=== PATIENT | female | born 1990 | race Caucasian/White ===

== ENCOUNTER 2016-08-31 12:24 | Emergency (ER) | payer OTHER ==
[2016-08-31 12:42] VITALS: RESP 16
[2016-08-31] MEDS ORDERED: IBUPROFEN 200 MG TAB PO ONE (15:24)
[2016-08-31] MEDS ORDERED: IBUPROFEN 600 MG TAB PO ONE (15:31)
[2016-08-31] MEDS ORDERED: NS 1,000 ML IV ONE (15:37)
[2016-08-31] MEDS ORDERED: HYDROmorphONE/DILAUDID 1 MG/ML SYR IVP ONE ×2 (15:38→17:08)
[2016-08-31] MEDS ORDERED: ONDANSETRON 4 MG/2 ML VIAL IVP ONE (15:38)
--- NOTE | 2016-08-31 15:41 | UCPHY ---
H & P Patient Type: New Chief Complaint Nursing Narrative: r rib pain since thursday, no known injury, pain worse with deep breath Time Seen by Provider: 08/31/16 14:50 HPI/ROS: CHIEF COMPLAINT: Right-sided rib pain HISTORY OF PRESENT ILLNESS: The patient is a 18-year-old healthy female who comes to the Urgent Care complaining of right-sided pleuritic rib pain. She denies any injury. She exercises frequently but does not do any heavy lifting. She has not had any trauma. She does take control. She does not smoke. She has not had any recent travel. No leg pain or swelling. She states the pain is in her right lower anterior rib cage and radiates to her back. It began on Thursday but at that time was radiating to her shoulder. She has not had a fever cough. She does feel slightly short of breath. REVIEW OF SYSTEMS: Constitutional: denies: chills, fever, recent illness, recent injury EENTM: denies: blurred vision, double vision, nose congestion Respiratory: See HPI Cardiac: denies: chest pain, irregular heart rate, lightheadedness, palpitations Gastrointestinal/Abdominal: denies: abdominal pain, diarrhea, nausea, vomiting, blood streaked stools Genitourinary: denies: dysuria, frequency, hematuria, pain Musculoskeletal: denies: joint pain, muscle pain Skin: denies: lesions, rash, jaundice, bruising Neurological: denies: headache, numbness, paresthesia, tingling, dizziness, weakness Hematologic/Lymphatic: denies: blood clots, easy bleeding, easy bruising Immunologic/allergic: denies: HIV/AIDS, transplant EXAM: GENERAL: Well-appearing, well-nourished and in no acute distress. HEAD: Atraumatic, normocephalic. EYES: Pupils equal round and reactive to light, extraocular movements intact, sclera anicteric, conjunctiva are normal. ENT: TMs normal, nares patent, oropharynx clear without exudates. Moist mucous membranes. NECK: Normal range of motion, supple without lymphadenopathy or JVD. LUNGS: Breath sounds clear to auscultation bilaterally and equal. No wheezes rales or rhonchi. No rib tenderness HEART: Regular rate and rhythm without murmurs, rubs or gallops. ABDOMEN: Soft, nontender, normoactive bowel sounds. No guarding, no rebound. No masses appreciated. Negative Morgan sign BACK: No CVA tenderness, no spinal tenderness, step-offs or deformities EXTREMITIES: Normal range of motion, no pitting or edema. No clubbing or cyanosis. NEUROLOGICAL: Cranial nerves II through XII grossly intact. Normal speech, normal gait. 5/5 strength, normal movement in all extremities, normal sensation PSYCH: Normal mood, normal affect. SKIN: Warm, dry, normal turgor, no visible rashes or lesions. Source: Patient Exam Limitations: No limitations - Personal History LMP (Females 10-55): 15-21 Days Ago Current Tetanus/Diphtheria Vaccine: Yes - Medical/Surgical History Hx Asthma: No Hx Chronic Respiratory Disease: No Hx Diabetes: No Hx Cardiac Disease: No Hx Renal Disease: No Hx Cirrhosis: No Hx Alcoholism: No Other PMH: deneis - Family History Significant Family History: No pertinent family hx - Social History Smoking Status: Never smoked Alcohol Use: Sober Drug Use: None Constitutional: Initial Vital Signs Temperature (C) 37.2 C 08/31/16 12:39 Heart Rate 70 08/31/16 12:39 Respiratory Rate 16 08/31/16 12:39 Blood Pressure 98/46 L 08/31/16 12:39 O2 Sat (%) 97 08/31/16 12:39 O2 Delivery Mode Room Air Allergies/Adverse Reactions: potassium clavula *RETIRED-01/19/12 [From Augmentin] Allergy (Intermediate, Verified 10/15/11 18:37) Rash amoxicillin [Amoxicillin] Allergy (Verified 10/15/11 18:37) Rash amoxicillin trihydrate [From Augmentin] Allergy (Verified 10/15/11 18:37) Rash Home Medications: Medication Instructions Recorded Bcp 08/31/16 Escitalopram Oxalate [Lexapro] 08/31/16 Hydrocodone/APAP 5/325 [[place] 1 tab PO Q4H PRN #14 tab 08/31/16 5/325 (RX)] Rivaroxaban [Xarelto] 1 each PO BID #1 tab.ds.pk 08/31/16 Medical Decision Making - Diagnostics EKG Interpretation: An EKG obtained and was read and documented in trace view. Please see trace view for full reading and report. Sinus rhythm, T-wave inversions in lead 3 Imaging Results: Imaging Impressions Chest X-Ray 08/31/16 12:42 Impression: Normal chest x-ray. Chest/Thorax CTA 08/31/16 16:18 Impression: 1. Low volume right lower lobe pulmonary embolic disease. 2. Suspect developing pulmonary infarct posteriorly at the right lung base. Results called and discussed with Siddhartha Mccarthy M.D. on August 31, 2016 at 1718 hours. Imaging: Discussed imaging studies w/ will call order clerk Radiologist ED Course/Re-evaluation: The patient has a small subsegmental PE with infarct. Her pulmonary embolism severity index score is low. She is eligible for outpatient management. She is not in any respiratory distress. She is not requiring oxygen. Her heart rate and blood pressure normal. No history of bleeding risk of bleeding. No serious comorbid conditions. Normal mental status and no evidence of DVT. I curb sided Dr. Mcallister. The patient will receive a dose of Lovenox tonight because Xarelto is not available and pharmacies are closed. We will then send her to the emergency department where she can receive the starter pack coupon. Her dad will drive her. I did offer her admission but she would prefer to go home. She states that the half tablet of Vicodin she took earlier controlled her pain adequately. We discussed indications for returning and I gave her strict return precautions. Differential Diagnosis: Partial list of the Differential diagnosis considered include but were not limited to; pulmonary embolism biliary disease, pneumonia and although unlikely based on the history and physical exam, I also considered pneumothorax , rib fracture, sprain, acute coronary disease. I discussed these differential diagnoses and the plan with the patient as well as the usual and expected course. The patient understands that the diagnosis is provisional and that in medicine we are not always correct and that further workup is often warranted. Usual and customary warnings were given. All of the patient's questions were answered. The patient was instructed to return to the emergency department should the symptoms at all worsen or return, otherwise to followup with the physician as we discussed. - Data Points Laboratory Results: Laboratory Results 08/31/16 15:55 08/31/16 15:55 08/31/16 08/31/16 08/31/16 15:55 15:55 15:55 WBC RBC Hgb Hct MCV MCH MCHC RDW Plt Count MPV Neut % (Auto) Lymph % (Auto) Stone % (Auto) Eos % (Auto) Baso % (Auto) Nucleat RBC Rel Count Absolute Neuts (auto) Absolute Lymphs (auto) Absolute Monos (auto) Absolute Eos (auto) Absolute Basos (auto) Absolute Nucleated RBC Immature Gran % Immature Gran # D-Dimer 3.02 ug/mLFEU H ug/mLFEU (0.00-0.50) Sodium 141 mEq/L mEq/L (134-144) Potassium 4.4 mEq/L mEq/L (3.5-5.2) Chloride 100 mEq/L mEq/L (97-110) Carbon Dioxide 23 mEq/l mEq/l (22-31) Anion Gap 18 mEq/L H mEq/L (8-16) BUN 13 mg/dL mg/dL (7-23) Creatinine 1.3 mg/dL H mg/dL (0.6-1.0) Estimated GFR 49 Glucose 81 mg/dL mg/dL (70-100) Calcium 9.9 mg/dL mg/dL (8.5-10.4) Total Bilirubin 1.7 mg/dL H mg/dL (0.1-1.4) Conjugated Bilirubin 0.3 mg/dL mg/dL (0.0-0.5) Unconjugated Bilirubin 1.4 mg/dL H mg/dL (0.0-1.1) AST 24 IU/L IU/L (14-46) ALT 23 IU/L IU/L (9-52) Alkaline Phosphatase 55 IU/L IU/L (38-126) Total Protein 8.9 g/dL H g/dL (6.3-8.2) Albumin 4.5 g/dL g/dL (3.5-5.0) Lipase 145.0 IU/L IU/L (23-300) Beta HCG, Qual NEGATIVE 08/31/16 15:55 WBC 4.79 10^3/uL 10^3/uL (3.80-9.50) RBC 4.61 10^6/uL 10^6/uL (4.18-5.33) Hgb 14.4 g/dL g/dL (12.6-16.3) Hct 42.3 % % (38.0-47.0) MCV 91.8 fL fL (81.5-99.8) MCH 31.2 pg pg (27.9-34.1) MCHC 34.0 g/dL g/dL (32.4-36.7) RDW 12.5 % % (11.5-15.2) Plt Count 263 10^3/uL 10^3/uL (150-400) MPV 8.9 fL fL (8.7-11.7) Neut % (Auto) 71.9 % % (39.3-74.2) Lymph % (Auto) 20.0 % % (15.0-45.0) Stone % (Auto) 7.1 % % (4.5-13.0) Eos % (Auto) 0.4 % L % (0.6-7.6) Baso % (Auto) 0.2 % L % (0.3-1.7) Nucleat RBC Rel Count 0.0 % % (0.0-0.2) Absolute Neuts (auto) 3.44 10^3/uL 10^3/uL (1.70-6.50) Absolute Lymphs (auto) 0.96 10^3/uL L 10^3/uL (1.00-3.00) Absolute Monos (auto) 0.34 10^3/uL 10^3/uL (0.30-0.80) Absolute Eos (auto) 0.02 10^3/uL L 10^3/uL (0.03-0.40) Absolute Basos (auto) 0.01 10^3/uL L 10^3/uL (0.02-0.10) Absolute Nucleated RBC 0.00 10^3/uL 10^3/uL (0-0.01) Immature Gran % 0.4 % % (0.0-1.1) Immature Gran # 0.02 10^3/uL 10^3/uL (0.00-0.10) D-Dimer Sodium Potassium Chloride Carbon Dioxide Anion Gap BUN Creatinine Estimated GFR Glucose Calcium Total Bilirubin Conjugated Bilirubin Unconjugated Bilirubin AST ALT Alkaline Phosphatase Total Protein Albumin Lipase Beta HCG, Qual Medications Given: Discontinued Medications Hydrocodone Bitart/Acetaminophen ([place] 5/325mg Prepack#6) 1 btl TAKEHOME EDNOW ONE Stop: 08/31/16 18:23 Last Admin: 08/31/16 18:33 Dose: 1 btl Enoxaparin Sodium (Lovenox) 60 mg SC EDNOW ONE Stop: 04/23/17 17:50 Last Admin: 08/31/16 18:15 Dose: 60 mg Hydromorphone HCl (Dilaudid) 1 mg IVP EDNOW ONE Stop: 08/31/16 15:39 Last Admin: 08/31/16 16:02 Dose: 1 mg Hydromorphone HCl (Dilaudid) 1 mg IVP EDNOW ONE Stop: 08/31/16 17:09 Last Admin: 08/31/16 17:18 Dose: 1 mg Sodium Chloride (Ns) 1,000 mls @ 0 mls/hr IV ONCE ONE PRN Reason: Wide Open Stop: 08/31/16 15:38 Last Admin: 08/31/16 16:00 Dose: 1,000 mls Ibuprofen (Motrin) 400 mg PO EDNOW ONE Stop: 08/31/16 15:25 Last Admin: 08/31/16 15:34 Dose: 400 mg Ondansetron HCl (Zofran) 4 mg IVP EDNOW ONE Stop: 08/31/16 15:39 Last Admin: 08/31/16 16:01 Dose: 4 mg Rivaroxaban (Xarelto) 15 mg PO BIDMEAL ABHISHEK Stop: 02/27/17 17:59 Last Admin: 08/31/16 18:13 Dose: Not Given Departure - Departure Disposition: Home, Routine, Self-Care Clinical Impression: Pulmonary embolism Qualifiers: Pulmonary embolism type: other Chronicity: acute Acute cor pulmonale presence: without acute cor pulmonale Qualified Code(s): I26.99 - Other pulmonary embolism without acute cor pulmonale Condition: Fair Instructions: Narcotic-Analgesic/Acetaminophen (By mouth), Rivaroxaban (By mouth), Deep Venous Thrombosis (ED) Referrals: Chayito Velazquez, PAC [Primary Care Provider] - As per Instructions Prescriptions: Hydrocodone/APAP 5/325 [[place] 5/325 (RX)] 1 tab PO Q4H PRN #14 tab PRN Reason: Pain, Moderate Rivaroxaban [Xarelto] 1 each PO BID #1 tab.ds.pk - PQRS PQRS Measurement: Not applicable
--- NOTE | 2016-08-31 15:57 | CPEKG ---
Heart Rate: 64 RR Interval: 938 P-R Interval: 156 QRSD Interval: 80 QT Interval: 392 QTC Interval: 405 P Gerber: 30 QRS Gerber: 25 T Wave Gerber: -2 EKG Severity - NORMAL ECG - EKG Impression: SINUS RHYTHM Electronically Signed By: Siddhartha Mccarthy 31-Aug-2016 16:21:08
[2016-08-31 16:04] LABS: % IMMATURE GRANULYOCYTES 0.4 % (0.0-1.1); ABSOLUTE IMMATURE GRANULOCYTES 0.02 10^3/uL (0.00-0.10); ADD DIFF? NO; ADD MORPH? NO; ADD SCAN? NO; ATYPICAL LYMPHOCYTE FLAG 20 (0-99); FRAGMENT RBC FLAG 0 (0-99); HEMATOCRIT 42.3 % (38.0-47.0); HEMOGLOBIN 14.4 g/dL (12.6-16.3); LEFT SHIFT FLG 0 (0-99); LIPEMIA HEMOLYSIS FLAG 90 (0-99); MEAN CELL HEMOGLOBIN 31.2 pg (27.9-34.1); MEAN CELL VOLUME 91.8 fL (81.5-99.8); MEAN PLATELET VOLUME 8.9 fL (8.7-11.7); PLATELET CLUMPS FLAG 10 (0-99); PLATELET COUNT 263 10^3/uL (150-400); RED BLOOD CELL COUNT 4.61 10^6/uL (4.18-5.33); RED CELL DISTRIBUTION WIDTH 12.5 % (11.5-15.2)
[2016-08-31 16:17] LABS: ALBUMIN 4.5 g/dL (3.5-5.0); BILIRUBIN,TOTAL 1.7 mg/dL (0.1-1.4); BILIRUBIN-CONJUGATED 0.3 mg/dL (0.0-0.5); BILIRUBIN-UNCONJUGATED 1.4 mg/dL (0.0-1.1); CALCIUM 9.9 mg/dL (8.5-10.4); CREATININE 1.3 mg/dL (0.6-1.0); POTASSIUM 4.4 mEq/L (3.5-5.2); TOTAL PROTEIN 8.9 g/dL (6.3-8.2)
[2016-08-31] MEDS ORDERED: IOPAMIDOL (ISOVUE 370) 100 ML BTL IV ONE (16:39)
[2016-08-31] MEDS ORDERED: ENOXAPARIN 60 MG/0.6 ML SYR SC ONE (17:49)
[2016-08-31] MEDS ORDERED: RIVAROXABAN 15 MG TAB PO SCH (18:00)
[2016-08-31 18:05] VITALS: BP 120/74; PULSE 64; TEMP 99; O2SAT 94
[2016-08-31] MEDS ORDERED: HYDROCOD/APAP 5/325 PREPACK#6 BTL TAKEHOME ONE (18:22)
== END 2016-08-31 18:36 | disposition home or self-care (01) ==
LOC: CED 12:24
DX: I26.99 Other pulmonary embolism without acute cor pulmonale (principal)
CPT/HCPCS: 71020-PO; 71275-PO; 80048-PO; 80076-PO; 83690-PO; 84703-PO; 85025-PO; 85378-PO; 93010-PO; 96361-PO; 96374-PO; 96375-PO; 96376-PO; 99205-PO; G0463-PO; J1170; J1650; J2405; Q9967

== ENCOUNTER 2018-01-16 21:21 | Emergency (ER) | payer OTHER ==
[2018-01-16] MEDS ORDERED: NS 1,000 ML IV ONE (21:53)
[2018-01-16] MEDS ORDERED: IBUPROFEN 600 MG TAB PO ONE (21:53)
--- NOTE | 2018-01-16 21:56 | EDPHY ---
H & P Time Seen by Provider: 01/16/18 21:28 HPI/ROS: CHIEF COMPLAINT: Right low chest pain HISTORY OF PRESENT ILLNESS: This is a 27-year-old female with history of pulmonary embolism about 18 months ago who presents reporting that she has had continuous right low chest discomfort associated with mild shortness of breath for the last 4 days. Pain developed when she was running. She felt like she might have a stitch in her side but it has persisted. She did note some cramping in her calf after a run. She also recently returned from [facility] for work, which is a 2 hr plane flight. No fevers or chills. No cough. No anterior chest pain. No nausea or vomiting. No diarrhea. Prior PE was in the similar location. Prior PE was thought to be provoked from her oral control pills. She is currently on a progesterone only IUD. REVIEW OF SYSTEMS: A comprehensive 10 system review of systems was reviewed and is otherwise negative aside from elements mentioned in the history of present illness. PAST MEDICAL HISTORY: Pulmonary embolism. SOCIAL HISTORY: Nonsmoker. VITAL SIGNS Reviewed by me. GENERAL: Well-developed, well-nourished, resting comfortably in no respiratory distress. HEENT: Atraumatic. Eyes: No icterus, no injection. Mouth: moist mucous membranes. No erythema or lesions. Neck: supple with no adenopathy. LUNGS: Clear to auscultation bilaterally, no wheezes, rhonchi or rales. CHEST: Patient indicates an area of discomfort over the right lower chest wall. No tenderness. No crepitus. No subcutaneous air palpable. CARDIAC: Regular rate and rhythm, no rubs, murmurs or gallops. ABDOMEN: Soft, nontender, nondistended, bowel sounds normal. BACK: No CVA tenderness. EXTREMITIES: No trauma. No edema. Range of motion is normal throughout. NEURO: Alert and oriented, grossly nonfocal. SKIN: Warm and dry, no rash. PSYCHIATRIC: Normal mentation, no agitation. Smoking Status: Never smoked Constitutional: Initial Vital Signs Temperature (C) 36.9 C 01/16/18 21:32 Heart Rate 60 01/16/18 21:32 Respiratory Rate 16 01/16/18 21:32 Blood Pressure 146/84 H 01/16/18 21:32 O2 Sat (%) 98 01/16/18 21:32 O2 Delivery Mode Room Air Allergies/Adverse Reactions: potassium clavula *RETIRED-01/19/12 [From Augmentin] Allergy (Intermediate, Verified 01/16/18 21:30) Rash amoxicillin [Amoxicillin] Allergy (Verified 01/16/18 21:30) Rash amoxicillin trihydrate [From Augmentin] Allergy (Verified 01/16/18 21:30) Rash Home Medications: Medication Instructions Recorded Iud 01/16/18 Naproxen Sodium [Aleve 220 MG (*)] 01/16/18 predniSONE 40 mg PO DAILY #6 tab 01/16/18 Medical Decision Making - Diagnostics Imaging Results: Imaging Impressions Chest/Thorax CTA 01/16/18 22:16 Impression: 1. No definite pulmonary thromboemboli. 2. No aortic aneurysm or dissection. 2. Pleural-parenchymal scarring right lower lobe from previous pulmonary embolus. 4. However no evidence of acute pulmonary embolus, acute pneumonia, pleural effusion or pneumothorax. Findings and recommendations discussed with Emergency Department physician, Briseyda Jeffery MD at 23:23 hour, 01/16/2018. Final report concurs with initial preliminary interpretation. ED Course/Re-evaluation: Review of the patient's records indicate that when she presented with her prior PE she had similar pain. At that time she was not tachycardic, hypoxic, or tachypneic. She did have elevated D-dimer at [address] scan which demonstrated subsegmental PE with infarct. Per the wells criteria the patient has a score of 4.5. (1.5 for prior PE and 3 for no other likely alternative diagnosis.) This gives the patient a moderate pretest probability for pulmonary embolism. I do note, however, the patient's provoking factor of estrogen containing oral contraceptive pills is no longer present. Patient's D-dimer high point of care testing is negative. Unclear to me if this is a highly sensitive D-dimer. Discussed the situation with the patient. We will proceed with CT scan to fully evaluate for pulmonary embolism. Patient's CT scan does not demonstrate any recurrent pulmonary embolism. Patient does have some pleural scarring in the right lower lobe at the location of the prior PE. Discussed the CT scan findings with the patient. Advised ibuprofen and/or Aleve for pain and anti-inflammatory effects. Patient was also given a short course of prednisone to treat presumed pleurisy. Follow up with her primary care physician and/or with pulmonology if her symptoms become persistent or recurrent with exercise. Differential Diagnosis: After history and physical examination, the differential for this patient's chest discomfort was considered, including but not limited to, myocardial ischemia, acute coronary syndrome, pulmonary embolus, chest wall pain, pleural inflammation and pulmonary infectious causes. - Data Points Laboratory Results: 01/16/18 21:59 POC Hgb 13.9 gm/dL gm/dL (12.6-16.3) POC Hct 41 % % (38-47) POC Sodium 141 mEq/L mEq/L (135-145) POC Potassium 3.1 mEq/L L mEq/L (3.3-5.0) POC Chloride 103 mEq/L mEq/L (97-110) POC BUN 15 mg/dL mg/dL (7-23) POC Creatinine 1.1 mg/dL H mg/dL (0.6-1.0) POC Glucose 91 mg/dL mg/dL (70-100) Medications Given: Discontinued Medications Sodium Chloride (Ns) 1,000 mls @ 0 mls/hr IV ONCE ONE; Wide Open PRN Reason: Protocol Stop: 01/16/18 21:54 Last Admin: 01/16/18 22:27 Dose: 1,000 mls Ibuprofen (Motrin) 600 mg PO EDNOW ONE Stop: 01/16/18 21:54 Last Admin: 01/16/18 22:32 Dose: 600 mg Point of Care Test Results: Chemistry 01/16/18 21:59 POC Sodium 141 mEq/L mEq/L (135-145) POC Potassium 3.1 mEq/L L mEq/L (3.3-5.0) POC Chloride 103 mEq/L mEq/L (97-110) POC BUN 15 mg/dL mg/dL (7-23) POC Creatinine 1.1 mg/dL H mg/dL (0.6-1.0) POC Glucose 91 mg/dL mg/dL (70-100) ISTAT H&H 01/16/18 21:59 POC Hgb 13.9 gm/dL gm/dL (12.6-16.3) POC Hct 41 % % (38-47) D-Dimer D-Dimer Collection Date 01/16/18 D-Dimer Collection Date 01/16/18 D-Dimer Collection Time 21:51 D-Dimer Collection Time 21:51 D-Dimer (ng/ml) <100 D-Dimer (ng/ml) <100ng/ml Urine Collection Date 01/16/18 Collection Time 22:00 HCG Results Negative Departure - Departure Disposition: Home, Routine, Self-Care Clinical Impression: Pleuritic chest pain, Pleurisy, Chest wall pain Condition: Good Instructions: Chest Wall Pain (ED), Pleurisy (ED) Additional Instructions: There is no evidence of recurrent pulmonary embolism on your CT scan. I recommend Ibuprofen (Motrin, Advil) or Naproxen Sodium (Aleve) for pain and anti-inflammatory effects. You may take either one, but do not take both. Your dose is: Ibuprofen 600 mg every 6-8 hours with food. OR Naproxen Sodium (Aleve) 220 mg every 12 hours. Please take the prednisone as directed. 40 mg daily for the next 3 days. Stay well-hydrated. Please follow up with primary care physician if your symptoms are not improving as expected. Please return to the emergency department or seek care urgently if you are worsening despite the above treatment, develops severe chest pain, significant shortness of breath, lightheadedness, dizziness, anterior chest discomfort, fever, or other concerns. Please follow up with a agent contract clerk if the symptoms tend to become recurrent with exercise. Referrals: Patient,NotPresent [Primary Care Provider] - As per Instructions Chiki Liriano MD [Medical Doctor] - As per Instructions (Dr. Liriano is an internal medicine physician.) Vito West MD [Medical Doctor] - As per Instructions (Dr. West is a agent contract clerk.) Prescriptions: predniSONE 40 mg PO DAILY #6 tab
[2018-01-16] MEDS ORDERED: IOPAMIDOL (ISOVUE 370) 100 ML BTL IV ONE (22:51)
[2018-01-16] MEDS ORDERED: HYDROCOD/APAP 5/325 PREPACK#6 BTL TAKEHOME ONE (23:28)
[2018-01-16] MEDS ORDERED: predniSONE 20 MG TAB PO ONE (23:28)
[2018-01-16 23:46] VITALS: BP 114/82
--- NOTE | 2018-01-19 20:16 | CPEKG ---
Test Reason : OPEN Blood Pressure : / mmHG Vent. Rate : 050 BPM Atrial Rate : 000 BPM P-R Int : 160 ms QRS Dur : 085 ms QT Int : 464 ms P-R-T Axes : 068 067 046 degrees QTc Int : 424 ms Sinus arrhythmia Confirmed by Briseyda Jeffery ([id number]) on 01/19/2018 8:16:03 PM Referred By: Confirmed By:Briseyda Jeffery
== END 2018-01-16 23:55 | disposition home or self-care (01) ==
LOC: CED 21:21
DX: R07.89 Other chest pain (principal); E86.9 Volume depletion, unspecified; Z86.711 Personal history of pulmonary embolism
CPT/HCPCS: 71275-PO; 82435-PO; 82565-PO; 82947-PO; 84132-PO; 84295-PO; 84520-PO; 85014-PO; J7512; Q9967